=== PATIENT | male | born 1995 | race Hispanic/Latino ===

== ENCOUNTER 2024-03-04 10:46 | Emergency (ER) | payer BC ==
[~2024-03-04] VITALS: Ht 167.6 cm; Wt 74.8 kg
[2024-03-04] MEDS ORDERED: MELOXICAM7.5 MG PO (11:38)
[2024-03-04 11:54] VITALS: PULSE 65; RESP 16; TEMP 98.7; O2SAT 97
== END 2024-03-04 11:54 | disposition home or self-care (01) ==
LOC: FSED 10:50
DX: S93.491A Sprain of other ligament of right ankle, initial encounter (principal); X50.1XXA Overexertion from prolonged static or awkward postures, initial encounter; Y93.66 Activity, soccer; Y92.322 Soccer field as the place of occurrence of the external cause
CPT/HCPCS: 99283